=== PATIENT | male | born 1990 | race Caucasian/White ===

== ENCOUNTER 2023-09-15 08:43 | Emergency (ER) | payer SELFPAY ==
[2023-09-15] MEDS ORDERED: Ondansetron PF 4 MG/2 ML Vial ONE (09:39)
[2023-09-15 09:50] LABS: #Monocytes 0.5 10x3/uL (0.0-1.1); #Neutrophils 4.6 10x3/uL (1.5-8.4); %Basophils 0.2 % (0.0-2.0); %Eosinophils 0.7 % (0.0-6.0); %Lymphocytes 13.3 % (18.0-47.0); %Monocytes 8.6 % (0.0-10.0); Hematocrit 37.7 % (38.8-50.0); Hemoglobin 12.8 g/dL (13.5-17.5); Mean Corpuscular Hemoglobin 29.3 pg (27.0-33.0); Mean Corpuscular Volume 86.3 fl (81.2-95.1); Mean Platelet Volume 9.2 fl (7.4-10.4); Platelet Count 247 10x3/uL (150-450); RBC Distribution Width 13.2 % (11.5-14.5); Red Blood Cell (RBC) Count 4.37 10x6/uL (4.32-5.72); White Blood Cell (WBC) Count 5.9 10x3/uL (3.5-10.5)
[2023-09-15 10:32] LABS: ALT (SGPT) 42 U/L (8-55); AST (SGOT) 37 U/L (5-34); Albumin 4.3 g/dL (3.5-5.0); Alkaline Phosphatase 85 U/L (40-110); Anion Gap 15 mmol/L (10-20); BUN (Urea Nitrogen) 10 mg/dL (8.9-20.6); Bilirubin, Total 0.6 mg/dL (0.2-1.2); Calc. Creatinine Clearance 0 mL/min (70-130); Calcium 9.4 mg/dL (7.8-10.44); Carbon Dioxide 24 mmol/L (22-29); Chloride 102 mmol/L (98-107); Estimated GFR 115; Globulin 3.4 g/dL (2.4-3.5); Glucose 91 mg/dL (70-105); Potassium 4.2 mmol/L (3.5-5.1); Protein, Total 7.7 g/dL (6.0-8.3); Sodium 137 mmol/L (136-145)
[2023-09-15] MEDS ORDERED: Mag-Al Plus 1200 MG/1200 MG/120 MG/30 ML UDCUP ONE (12:51)
[2023-09-15] MEDS ORDERED: Iopamidol 300 61% 100 ML VIAL FS ONE (13:57)
== END 2023-09-15 12:00 | disposition home or self-care (01) ==
LOC: CSHERS 08:43
DX: K52.9 Noninfective gastroenteritis and colitis, unspecified (principal); F17.290 Nicotine dependence, other tobacco product, uncomplicated
CPT/HCPCS: 74177; 80053; 85025; 96374; J2405; Q9967

== ENCOUNTER 2023-10-21 07:39 | Emergency (ER) | payer SELFPAY ==
[2023-10-21] MEDS ORDERED: Dexamethasone 10 MG/ML VIAL ONE (08:12)
[2023-10-21 08:35] LABS: SARS-CoV-2 NAA Rapid Test Not Detected (NotDetected)
== END 2023-10-21 08:53 | disposition home or self-care (01) ==
LOC: CSHERS 07:39
DX: J02.9 Acute pharyngitis, unspecified (principal)
CPT/HCPCS: 99283; J1100

== ENCOUNTER 2023-11-18 08:51 | Emergency (ER) | payer SELFPAY ==
[2023-11-18 09:21] LABS: #Eosinphils 0.1 10x3/uL (0.0-0.5); #Monocytes 0.4 10x3/uL (0.0-1.1); #Neutrophils 3.3 10x3/uL (1.5-8.4); %Basophils 0.3 % (0.0-2.0); %Eosinophils 1.2 % (0.0-6.0); %Lymphocytes 37.7 % (18.0-47.0); %Monocytes 5.9 % (0.0-10.0); %Neutrophils 54.6 % (40.0-75.0); Hematocrit 37.1 % (38.8-50.0); Hemoglobin 12.7 g/dL (13.5-17.5); Mean Corpuscular HGB CONC 34.2 g/dL (32.0-36.0); Mean Corpuscular Hemoglobin 29.5 pg (27.0-33.0); Mean Corpuscular Volume 86.1 fl (81.2-95.1); Mean Platelet Volume 9.7 fl (7.4-10.4); Platelet Count 220 10x3/uL (150-450); RBC Distribution Width 12.7 % (11.5-14.5); Red Blood Cell (RBC) Count 4.31 10x6/uL (4.32-5.72); White Blood Cell (WBC) Count 6.1 10x3/uL (3.5-10.5)
[2023-11-18 09:35] LABS: Albumin 4.3 g/dL (3.5-5.0); Anion Gap 16 mmol/L (10-20); BUN (Urea Nitrogen) 10 mg/dL (8.9-20.6); Bilirubin, Total 0.5 mg/dL (0.2-1.2); Calc. Creatinine Clearance 0 mL/min (70-130); Calcium 9.1 mg/dL (7.8-10.44); Carbon Dioxide 25 mmol/L (22-29); Chloride 102 mmol/L (98-107); Estimated GFR 115; Glucose 129 mg/dL (70-105); Potassium 3.3 mmol/L (3.5-5.1); Protein, Total 7.2 g/dL (6.0-8.3); Sodium 140 mmol/L (136-145)
[2023-11-18 09:36] LABS: ALT (SGPT) 46 U/L (8-55); AST (SGOT) 41 U/L (5-34); Alkaline Phosphatase 79 U/L (40-110); Globulin 2.9 g/dL (2.4-3.5)
[2023-11-18 09:39] LABS: Troponin I Less than 0.010 ng/mL (< 0.028)
[2023-11-18 10:40] LABS: SARS-CoV-2 NAA Rapid Test Not Detected (NotDetected)
== END 2023-11-18 12:29 | disposition home or self-care (01) ==
LOC: CSHERS 08:51
DX: R09.1 Pleurisy (principal); F17.290 Nicotine dependence, other tobacco product, uncomplicated
CPT/HCPCS: 71045; 80053; 84484; 85025; 93005

== ENCOUNTER 2023-12-12 08:23 | Emergency (ER) | payer BC, SELFPAY | END 2023-12-12 11:28 | disposition home or self-care (01) | LOC: CSHERS 08:23 | DX: M79.671 Pain in right foot (principal); M79.672 Pain in left foot; M72.2 Plantar fascial fibromatosis; F17.200 Nicotine dependence, unspecified, uncomplicated; F17.290 Nicotine dependence, other tobacco product, uncomplicated | CPT/HCPCS: 99283 ==

== ENCOUNTER 2024-04-05 10:05 | Emergency (ER) | payer OTHER, SELFPAY ==
[2024-04-05] MEDS ORDERED: Acetaminophen 500 MG TAB ONE (11:33)
[2024-04-05] MEDS ORDERED: Ondansetron ODT 4 MG TAB ONE (11:33)
[2024-04-05 12:03] LABS: #Basophils 0.03 10x3/uL (0.0-0.2); #Eosinphils 0.07 10x3/uL (0.0-0.5); #Monocytes 0.55 10x3/uL (0.0-1.1); #Neutrophils 4.08 10x3/uL (1.5-8.4); %Basophils 0.4 % (0.0-2.0); %Lymphocytes 32.4 % (18.0-47.0); %Monocytes 7.8 % (0.0-10.0); %Neutrophils 58.3 % (40.0-75.0); Hematocrit 36.8 % (38.8-50.0); Hemoglobin 12.7 g/dL (13.5-17.5); Mean Corpuscular HGB CONC 34.5 g/dL (32.0-36.0); Mean Corpuscular Hemoglobin 29.7 pg (27.0-33.0); Mean Corpuscular Volume 86.2 fL (81.2-95.1); Platelet Count 221 10x3/uL (150-450); RBC Distribution Width 12.7 % (11.5-14.5); Red Blood Cell (RBC) Count 4.27 10x6/uL (4.32-5.72)
[2024-04-05 12:28] LABS: ALT (SGPT) 67 U/L (8-55); AST (SGOT) 42 U/L (5-34); Albumin 3.9 g/dL (3.5-5.0); Alkaline Phosphatase 73 U/L (40-110); Anion Gap 13 mmol/L (10-20); BUN (Urea Nitrogen) 12 mg/dL (8.9-20.6); Bilirubin, Total 0.4 mg/dL (0.2-1.2); Calc. Creatinine Clearance 0 mL/min (70-130); Calcium 9.3 mg/dL (7.8-10.44); Carbon Dioxide 24 mmol/L (22-29); Chloride 105 mmol/L (98-107); Estimated GFR 116; Globulin 3.1 g/dL (2.4-3.5); Glucose 92 mg/dL (70-105); Lipase 62 U/L (8-78); Sodium 138 mmol/L (136-145)
[2024-04-05 12:34] LABS: Troponin I Less than 0.010 ng/mL (< 0.028)
[2024-04-05 14:04] LABS: Influenza A by NAA Not Detected (NotDetected); Influenza B by NAA Not Detected (NotDetected); SARS-CoV-2 NAA Rapid Test Not Detected (NotDetected)
== END 2024-04-05 12:45 | disposition home or self-care (01) ==
LOC: CSHERS 10:05
DX: B34.9 Viral infection, unspecified (principal); Z55.6 Problems related to health literacy
CPT/HCPCS: 71045; 80053; 83690; 84484; 85025; 93005; Q0162

== ENCOUNTER 2024-04-12 08:31 | Emergency (ER) | payer SELFPAY ==
[2024-04-12 09:19] LABS: Bilirubin Neg (Negative); Blood, Urine Negative (Negative); Clarity Clear (Clear); Glucose, Urine (Dipstick) Normal (Negative); Ketone, Urine Negative (Negative); Leukocyte 500 (Negative); Nitrite Negative (Negative); Protein, Urine (Dipstick) Negative (Neg-Trace); Specific Gravity, Urine 1.015 (1.005-1.030); Urobilinogen Normal mg/dL (Less than 2)
[2024-04-12 09:35] LABS: Bacteria/HPF 1+ HPF (None Seen); CAUTI Indications for Culture Dysuria,urgency,freq; RBC/HPF 0-3 HPF (0-3); Squamous Epithelial 0-3 HPF (0-3)
[2024-04-12 09:37] LABS: Urine Culture Reflex No No
[2024-04-12] MEDS ORDERED: Clotrimazole 1% Cream 15 GM TUBE TOP SCH (09:45)
== END 2024-04-12 10:04 | disposition home or self-care (01) ==
LOC: CSHERS 08:31
DX: J35.8 Other chronic diseases of tonsils and adenoids (principal); N39.0 Urinary tract infection, site not specified; N48.1 Balanitis; F17.290 Nicotine dependence, other tobacco product, uncomplicated; G43.909 Migraine, unspecified, not intractable, without status migrainosus; Z55.6 Problems related to health literacy
CPT/HCPCS: 81001; 99283

== ENCOUNTER 2024-04-20 07:48 | Emergency (ER) | payer BC, SELFPAY ==
[2024-04-20 08:50] LABS: Bilirubin Neg (Negative); Blood, Urine Negative (Negative); Clarity Clear (Clear); Glucose, Urine (Dipstick) Normal (Negative); Ketone, Urine Negative (Negative); Leukocyte 100 (Negative); Nitrite Negative (Negative); Protein, Urine (Dipstick) Negative (Neg-Trace); Specific Gravity, Urine 1.015 (1.005-1.030); Urobilinogen Normal mg/dL (Less than 2)
[2024-04-20 09:03] LABS: CAUTI Indications for Culture Pelvic or flank pain; RBC/HPF 0-3 HPF (0-3)
[2024-04-20 09:04] LABS: WBC/HPF 0-3 HPF (0-3)
[2024-04-20 09:05] LABS: Bacteria/HPF Rare-Few HPF (None Seen); Squamous Epithelial 0-3 HPF (0-3); Urine Culture Reflex No No
== END 2024-04-20 09:00 | disposition home or self-care (01) ==
LOC: CSHERS 07:48
DX: B37.42 Candidal balanitis (principal)
CPT/HCPCS: 36416; 81001; 99283

== ENCOUNTER 2024-08-23 19:11 | Emergency (ER) | payer BC ==
[2024-08-23] MEDS ORDERED: Metoclopramide HCl 10 MG (2 mL) VIAL ONE (20:03)
[2024-08-23] MEDS ORDERED: diphenhydrAMINE 50 MG/ML VIAL ONE (20:04)
[2024-08-23] MEDS ORDERED: Dexamethasone 10 MG/ML VIAL ONE (20:04)
== END 2024-08-23 21:24 | disposition home or self-care (01) ==
LOC: CSHERS 19:11
DX: G43.919 Migraine, unspecified, intractable, without status migrainosus (principal)
CPT/HCPCS: 96365; 96375; J1100; J1200; J2765

== ENCOUNTER 2024-10-17 16:51 | Emergency (ER) | payer BC | END 2024-10-17 17:58 | disposition home or self-care (01) | LOC: CSHERS 16:51 | DX: G56.03 Carpal tunnel syndrome, bilateral upper limbs (principal) | CPT/HCPCS: 93005; 99284 ==

== ENCOUNTER 2024-12-01 21:15 | Emergency (ER) | payer BC | END 2024-12-01 23:35 | disposition home or self-care (01) | LOC: CSHERS 21:15 | DX: J02.0 Streptococcal pharyngitis (principal); Z87.09 Personal history of other diseases of the respiratory system | CPT/HCPCS: 71045; 87428; 93005 ==

== ENCOUNTER 2025-06-08 09:56 | Emergency (ER) | payer BC, SELFPAY ==
[2025-06-08] MEDS ORDERED: HYDROcodone/Acetaminophen 10/325 mg Tablet ONE (11:32)
== END 2025-06-08 13:03 | disposition home or self-care (01) ==
LOC: CSHERS 09:56
DX: S33.5XXA Sprain of ligaments of lumbar spine, initial encounter (principal); S13.4XXA Sprain of ligaments of cervical spine, initial encounter; S16.1XXA Strain of muscle, fascia and tendon at neck level, initial encounter; V49.9XXA Car occupant (driver) (passenger) injured in unspecified traffic accident, initial encounter
CPT/HCPCS: 72125; 72131